=== PATIENT | male | born 1990 | race Asian ===

== ENCOUNTER → 2020-12-21 | Day surgery (SDC) | payer OTHER ==
[~2020-12-21] VITALS: Ht 175.3 cm; Wt 79.4 kg
[~2020-12-21] MED LIST: HYDROCODON-ACE1 EAC7 PO
--- NOTE | ~2020-12-21 | O ---
[facility] [place] [address] OPERATIVE REPORT Name: HERNESTO LOPES Room #: REG [facility]..#: [id number] Admission: 12/21/20 Attend Phys: Ajith Singh MD Discharge: Date of : 89 Report #: [id number] THIS REPORT FOR: cc: NO FAMILY PHYSICIAN or PCP NO FAMILY PHYSICIAN or PCP Ajith Singh MD ~ DATE OF SERVICE: 12/21/2020 PREOPERATIVE DIAGNOSIS: Painful umbilical hernia. POSTOPERATIVE DIAGNOSIS: Painful umbilical hernia. PROCEDURE PERFORMED: Open repair of umbilical hernia with medium size Ventralex ST patch. ANESTHESIA: General LMA. COMPLICATIONS: None. SURGEON: Ajith Singh MD BLOOD LOSS: 2 mL. DESCRIPTION OF PROCEDURE: With the patient under general anesthesia with an LMA, abdomen was prepped and draped in sterile fashion. Preoperative IV antibiotic was administered. Timeout was performed. 0.25% Marcaine was then used to anesthetize the skin and subcutaneous tissue. Curvilinear incision was made infraumbilically about 3-4 cm. After dissecting through the skin and subcutaneous tissue, the herniated content was found and this does come out more to the left of the umbilicus skin. The overlying skin was dissected free from the herniated fat. Herniated fat was then isolated. The fascial edges was then dissected free. The herniated fat was then reduced back in the properitoneal space, a little bit of the fat. The extraperitoneal was resected and removed. The properitoneal space was then dissected free using cautery and blunt pushing dissection with gauze. The properitoneal space was opened up. Once the space was opened up, a medium sized Ventralex patch was felt to be the appropriate size. This was moistened and then placed in the properitoneal space. Prior to this, irrigation was used to irrigate out the pocket. The mesh seated well, opened up well. The fascia was then closed with 0 Prolene horizontal mattress suture x 3. This incorporated the strap to the fascia closure. Skin of the umbilicus was then sewn down to the fascia with 4-0 PDS. Subcutaneous was [facility] [address] [place] [address] OPERATIVE REPORT Name: MOSESFAROOQHERNESTO Room #: REG [facility] M.R.#: [id number] Admission: 12/21/20 Attend Phys: Ajith Singh MD Discharge: Date of : 89 Report #: [id number] reapproximated with 4-0 PDS. Skin was closed with 5-0 PDS. Steri-Strips, 4 x 4 Op-Site used for dressing. The patient tolerated the procedure well. By: [id number] Ajith Singh MD /nt
[2020-12-21 10:55] VITALS: BP 135/75
[2020-12-21 12:35] VITALS: BP 135/75
== END | disposition home or self-care (01) ==
LOC: OR 09:07
PROVIDERS: ATTEND Surgery
DX: K42.9 Umbilical hernia without obstruction or gangrene (principal); Z98.890 Other specified postprocedural states; Z79.899 Other long term (current) drug therapy; Z20.822 Contact with and (suspected) exposure to COVID-19; Z87.891 Personal history of nicotine dependence
CPT/HCPCS: 50010; 50101; 50130; 50386; 50403; 56524; 56525; 62110; 62900; 70005